=== PATIENT | male | born 1995 ===

== ENCOUNTER 2017-08-11 10:09 | Emergency (ER) | payer BC ==
[2017-08-11 10:57] VITALS: BP 144/86
--- NOTE | 2017-08-11 12:28 | UC ---
Skin Complaint HPI - HPI Summary HPI Summary: Pt c/o non tender, pustular "bumps" on shaft of penis and pubic mons where patient has been routinely shaving pubic hair. Pt first noticed "bumps" in february was seen at and given dx of tines, bumps did not improve, pt was tested for STD's and all negative. Pt noted no improvement of "bumps from february to april, so then went to another and was told had "pimples". Pt states that they have not improved. - History of Current Complaint Chief Complaint: UCSTDScreening Time Seen by Provider: 08/11/17 11:06 Stated Complaint: SKIN COMPLAINT Hx Obtained From: Patient Onset/Duration: Gradual Onset, Lasting Weeks, Still Present, Worse Since - onset Skin Exposure Onset/Duration: Weeks Ago Timing: Constant Onset Severity: Mild Current Severity: Mild Pain Intensity: 0 Pain Scale Used: 0-10 Numeric Location: Diffuse Character: Redness Aggravating Factor(s): Nothing Alleviating Factor(s): Nothing Associated Signs & Symptoms: Positive: Rash - Allergy/Home Medications Allergies/Adverse Reactions: Allergies Allergy/AdvReac Type Severity Reaction Status Date / Time No Known Allergies Allergy Verified 03/23/17 08:52 Review of Systems Constitutional: Negative Skin: Rash Eyes: Negative ENT: Negative Respiratory: Negative Cardiovascular: Negative Gastrointestinal: Negative Genitourinary: Negative Motor: Negative Neurovascular: Negative Musculoskeletal: Negative Neurological: Negative Psychological: Negative Is Patient Immunocompromised?: No All Other Systems Reviewed And Are Negative: Yes PMH/Surg Hx/FS Hx/Imm Hx Previously Healthy: Yes - Surgical History Surgical History: Yes Surgery Procedure, Year, and Place: facial reconstruction - Family History Known Family History: Negative: Diabetes - Social History Occupation: Student Lives: Dormitory/Roommates Alcohol Use: Occasionally Substance Use Type: None Smoking Status (MU): Light Every Day Tobacco Smoker Type: Cigarettes Amount Used/How Often: occasional use2-3 daily Have You Smoked in the Last Year: Yes Household Exposure Type: Cigarettes Physical Exam Triage Information Reviewed: Yes Appearance: Well-Appearing Vital Signs: Initial Vital Signs Temp 97.8 F 08/11/17 10:48 Pulse 64 08/11/17 10:48 Resp 16 08/11/17 10:48 BP 144/86 08/11/17 10:48 Pulse Ox 100 08/11/17 10:48 Vital Signs Reviewed: Yes Eye Exam: Normal ENT Exam: Normal Neck exam: Normal Respiratory Exam: Normal Cardiovascular Exam: Normal Musculoskeletal Exam: Normal Neurological Exam: Normal Psychological Exam: Normal Skin Exam: Other - scattered pustules at bases of pelvis and shaft of penis ~ 10 . Non tender, pin prick size erythematous encircling pustular center, pt shaves pubic hair. Course/Dx - Differential Diagnoses - Skin Complaint Differential Diagnoses: Cellulitis, Tinea, Other - herpes, syphilis - Diagnoses Provider Diagnoses: folliculitis Discharge - Sign-Out/Discharge Documenting (check all that apply): Discharge - Discharge Plan Condition: Stable Disposition: HOME Prescriptions: Cephalexin CAP* [Keflex 500 CAP*] 500 mg PO Q8H #21 cap Patient Education Materials: Folliculitis (ED) Referrals: No Primary Care Phys,NOPCP [Primary Care Provider] - Hema Guerrero DO [Doctor of Osteopathy] - KAREN Ruiz [Medical Doctor] - Additional Instructions: Please establish care with a PCP as soon as possible for continued health maintenance. - Billing Disposition and Condition Condition: STABLE Disposition: HOME
== END 2017-08-11 11:44 | disposition home or self-care (01) ==
LOC: UCCORT 10:09
DX: L73.9 Follicular disorder, unspecified (principal); F17.210 Nicotine dependence, cigarettes, uncomplicated
CPT/HCPCS: 81003; 87491; 87591; 99212; G0463